=== PATIENT | male | born 1960 | race Caucasian/White ===

== ENCOUNTER 2017-09-24 10:12 | Inpatient (IN) | payer OTHER ==
[~2017-09-24] VITALS: Ht 160 cm; Wt 82.3 kg
[2017-09-24] VITALS (7 sets, daily range): BP systolic 109–150; BP diastolic 56–76
--- NOTE | ~2017-09-24 | HC ---
[facility] [place] [address] CONSULTATION Name: WEN JOY Room #: 214-P [facility] IN M.R.#: [id number] Admission: 09/24/17 Attend Phys: Miguel Robles MD Discharge: 09/25/17 Date of : 60 Report #: [id number] THIS REPORT FOR: //name// CC: Miguel Rivas MD PHYSICIAN REQUESTING CONSULTATION: Dr. Miguel Robles. PHYSICIAN PROVIDING CONSULTATION: Dr. Man Butcher at [phone]. REASON FOR CONSULTATION: CML and epistaxis. HISTORY OF PRESENT ILLNESS: The patient is a 57-year-old male, well known to me from a diagnosis of chronic myelogenous leukemia from about 05/2015. At that time, his white count was 192,000. More recently, he had been off therapy and he came in and saw us about 09/05/2017 for the first time in about 6 months. His white count was now at 258,000 with no therapy. He began Hydrea 1 gram twice daily while we are checking in to insurance coverage for Gleevec. In the past, it had been a problem with coverage and recent new insurance. He was supposed to return in 1 week with labs at his primary physician's office and with us in 2 weeks; he did neither. He did mention that his abdominal pain, thought due to his splenomegaly, got better 2 days after starting therapy. He started noticing a rash in his upper left thigh. About the same time, he noted a rash in his legs, which when we see is consistent with both petechia and purpura and then he also began having nosebleeds. When he came in and was seen in the Emergency Room, his hemoglobin was 7.2, his white count 2.5 and his platelets were 12,000. After transfusion, they went up to 50 and then late today, were 47. Note that he has received a unit of blood, but his hemoglobin today is 6.9 and he has received another unit of blood and then will have a CBC after that. Denies any fevers or chills or arm or leg swelling. Does have the skin rash. No blood in his urine or stool. He is thinking clearly. He also asked about whether he can keep drinking beer; he drinks about 9 beverages a day. We told him we would prefer he does not drink, but it would be probably better to slowly drop is drinking down versus going cold turkey and we outlined that he may wish to consider drinking maybe 3 beers a day for a couple of weeks, then 2 beers a day and than one beer a day, maybe a week at a time, though I doubt he will follow these recommendations. PAST MEDICAL HISTORY: Past history is notable for the diagnosis of CML from about 05/2015. He had been on Gleevec and with some benefit, but was taking it very intermittently both because of leg pains and I am not sure really exactly whatever else. We had to remind it to him several times by taking it intermittently, he has increased the chance of disease resistance and actually a failure. We have talked about this multiple times and he continues taking things as best as he can, which is very difficult for him. He also has a [facility] [address] [place] [address] CONSULTATION Name: WEN JOY Room #: 214-P [facility] IN M.R.#: [id number] Admission: 09/24/17 Attend Phys: Miguel Robles MD Discharge: 09/25/17 Date of : 60 Report #: [id number] history of hyponatremia and hypertension. SOCIAL HISTORY: He used to work as a health insurance adjuster. Denies smoking. Does drink alcohol regularly, as mentioned above. FAMILY HISTORY: Mother with history of lung cancer, who is also a smoker. MEDICATIONS: At this time in the hospital currently include cefdinir 300 mg b.i.d., allopurinol 300 mg daily, amlodipine 5 daily, vitamins 1 tab daily, thiamine 100 mg daily, Benadryl p.r.n., pantoprazole b.i.d., Haldol p.r.n., flumazenil p.r.n., lorazepam p.r.n. and morphine p.r.n. PHYSICAL EXAMINATION: GENERAL: The patient appears his stated age. VITAL SIGNS: His height is 5 feet 3, which is 160 cm; weight is 181.4 pounds or 82.3 kilograms. Blood pressure currently 151/77 with respirations 20, O2 sat 100, pulse 110 and temperature 98.8. HEENT: The patient does have a catheter in his left naris and has packing. His oropharynx does have one small area of ecchymosis on the left of the soft palate measuring about 2 x 5 mm. LUNGS: Sound clear. HEART: Regular rate. LYMPHATIC: No enlarged lymph nodes. ABDOMEN: No definite palpable hepatosplenomegaly. EXTREMITIES: Without clubbing or cyanosis. Note that he does have the rash with the petechia and the purpura about mid miner. ASSESSMENT AND PLAN: 1. Chronic myelogenous leukemia. Continue holding Hydrea and then would consider starting Gleevec once his counts are in the acceptable level, meaning a hemoglobin over 11, for example, a white count over 3 or 4 and platelets of over 100,000 or 150,000. 2. Cytopenia, most likely due to the Hydrea. Continue monitoring. We will ask the patient to come in to our office tomorrow and again next Friday and probably at least twice a week for us to see that his counts are recovering, which they should do fairly quickly after cessation of the Hydrea. 3. Hypertension. Lisinopril and other medications as needed. 4. Alcohol misuse. The patient asked me if he could continue drinking, even though I told him I would in general prefer he taper off his drinking as far as it is safer for him to drink a little bit on a regular basis while he tries to taper, though I doubt he will . He is aware about run fits and detoxification. We cautioned him about looking up for those symptoms or his family if they those side effects. 5. Nasal packing. ENT has suggested removal early next week as an outpatient [address] [address] CONSULTATION Name: WEN JYO Room #: 214-P [facility] IN ..#: [id number] Admission: 09/24/17 Attend Phys: Miguel Robles MD Discharge: 09/25/17 Date of : 60 Report #: [id number] and also antibiotics and removed. I went over this with him. We will follow. <ELECTRONICALLY SIGNED> By: Man Butcher MD 10/01/17 0710 0849 1229 Man Butcher MD /liam
--- NOTE | ~2017-09-24 | EKG ---
[address] [employer] [place] [address] ELECTROCARDIOGRAM REPORT Name: WEN JOY Room #: 214-P ADM IN M.R.#: [id number] Admission: 09/24/17 Attend Phys: Miguel Robles MD Discharge: Date of : 60 Report #: [id number] THIS REPORT FOR: //name// [facility] ED Test Date: 2017-09-24 Test Time: 12:38:20 Pat Name: WEN JOY Department: Room: 214 Gender: M Research Epidemiologist: JOEY : 1960 Requested By: Kyle Aguilar Order Number: [id number] MD: Moose Merino Measurements Intervals [place] Rate: 82 P: 17 SD: 119 QRS: 53 QRSD: 96 T: 28 QT: 428 QTc: 500 Interpretive Statements Baseline artifact limits assessment Sinus rhythm Borderline prolonged QT interval Baseline wander in lead(s) II Compared to ECG 05/26/2015 22:50:27 Sinus tachycardia no longer present Electronically Signed On 09-25-2017 8:24:41 [employer] by Moose Merino [email or web address] <ELECTRONICALLY SIGNED> By: Moose Merino MD, [facility] 09/25/17 0824 1238 1238 Moose Merino MD, [facility] /EPI
[~2017-09-24 10:12] MED LIST: ALLOPURINOL 30300 M2 PO; HYDREA 500 MG500 M1 PO; LISINOPRIL5 MG PO; OXYCODONE HCL5 MG PO
[2017-09-24] MEDS ORDERED: NORVASC5 MG PO (10:19)
[2017-09-24 11:03] LABS: HEMOGLOBIN 7.2 gm/dL (14.0-18.0); WBC 2.5 thou/uL (4.0-11.0)
[2017-09-24 11:05] LABS: HEMATOCRIT 20.9 % (42.0-52.0); MCH 28.8 pg (26.0-34.0); MCHC 34.4 g/dL (28.0-37.0); MCV 83.7 fL (80.0-100.0); RBC 2.49 mil/uL (4.50-6.00); RDW 15.6 % (10.5-14.5)
[2017-09-24 11:16] LABS: CALCIUM 8.4 mg/dL (8.5-10.1); CREATININE 0.8 mg/dL (0.7-1.3); INR 1.1; POTASSIUM 3.9 mmol/L (3.5-5.1)
[2017-09-24 11:38] LABS: ABSOLUTE NEUTROPHILS 1.4 thou/uL (1.4-8.2)
[2017-09-24 11:39] LABS: ANISOCYTOSIS 1+; METAMYELOCYTES 1 %; POLYCHROMASIA OCCASIONAL
[2017-09-24 11:43] LABS: PLATELET COUNT 12 thou/uL (150-400)
[2017-09-24 12:06] LABS: D-DIMER 1.18 ug/mLFEU (0.19-0.50)
[2017-09-24 12:54] LABS: ABSOLUTE RETIC COUNT 0.0051 10^6/uL; OBSERVED RETIC COUNT 0.2 % (0.6-2.6)
[2017-09-24 22:32] LABS: HEMATOCRIT 22.4 % (42.0-52.0); HEMOGLOBIN 7.6 gm/dL (14.0-18.0)
[2017-09-25 03:25] LABS: RDW 15.6 % (10.5-14.5); WBC 3.1 thou/uL (4.0-11.0)
[2017-09-25 03:27] LABS: HEMOGLOBIN 6.9 gm/dL (14.0-18.0); MCH 29.3 pg (26.0-34.0); MCHC 34.5 g/dL (28.0-37.0); MCV 84.9 fL (80.0-100.0); RBC 2.34 mil/uL (4.50-6.00)
[2017-09-25 03:34] LABS: CALCIUM 7.9 mg/dL (8.5-10.1); CREATININE 0.8 mg/dL (0.7-1.3); POTASSIUM 3.8 mmol/L (3.5-5.1)
[2017-09-25 03:45] VITALS: BP 136/82
[2017-09-25 07:21] VITALS: BP 135/73; BP 136/75
[2017-09-25 07:25] VITALS: BP 151/77
[2017-09-25] MEDS ORDERED: CEFDINIR300 MG PO (10:23)
[2017-09-25] MEDS ORDERED: PANTOPRAZOLE SO40 M1 PO (10:24)
[2017-09-25 11:40] VITALS: BP 140/71
[2017-09-25 11:59] LABS: HEMOGLOBIN 8.7 gm/dL (14.0-18.0)
[2017-09-25 12:01] LABS: HEMATOCRIT 25.5 % (42.0-52.0)
[2017-09-25 13:39] VITALS: BP 140/71
== END 2017-09-25 15:36 | disposition home or self-care (01) | DRG 841 ==
LOC: ER 10:12 → EROBS 12:50 → 2N 14:50
PROVIDERS: Hospitalist; Physician Assistant
PROC: 30233R1 Transfusion of Nonautologous Platelets into Peripheral Vein, Percutaneous Approach (ICD-10-PCS; principal; 2017-09-24)
PROC: 30233N1 Transfusion of Nonautologous Red Blood Cells into Peripheral Vein, Percutaneous Approach (ICD-10-PCS; 2017-09-24)
PROC: 2Y41X5Z Packing of Nasal Region using Packing Material (ICD-10-PCS; 2017-09-25)
DX: C92.10 Chronic myeloid leukemia, BCR/ABL-positive, not having achieved remission (principal); D61.818 Other pancytopenia; E87.1 Hypo-osmolality and hyponatremia; R04.0 Epistaxis; F10.10 Alcohol abuse, uncomplicated; D69.6 Thrombocytopenia, unspecified; I10 Essential (primary) hypertension; Z88.6 Allergy status to analgesic agent; Z79.899 Other long term (current) drug therapy; Z80.1 Family history of malignant neoplasm of trachea, bronchus and lung
CPT/HCPCS: 10081